=== PATIENT | female | born 1980 | race Caucasian/White ===

== ENCOUNTER 2016-07-17 10:03 | Emergency (ER) | payer MEDICAID ==
[~2016-07-17] VITALS: Ht 167.6 cm; Wt 72.1 kg
[2016-07-17 10:06] VITALS: BP 103/57
--- NOTE | 2016-07-17 10:21 | NUR ---
Patient ambulated to bed 3. RN evaluating patient at bedside.
--- NOTE | 2016-07-17 10:30 | NUR ---
36/F TO ED WITH C/O VAG BLEEDING STARTING LAST NIGHT. PT STATES SHE IS 11 WEEKS PREG. DENIES PAIN. 1 PAD SATURATED OVER NIGHT. LUNGS CLEAR BILAT. HR EVEN AND REGULAR. AAOX4. VSS. NO SIGNS OF DISTRESS.
--- NOTE | 2016-07-17 11:38 | NUR ---
REPatient appears to be resting comfortably in bed. Vital Signs within normal limits. Respirations even and unlabored.
--- NOTE | 2016-07-17 12:21 | NUR ---
Pelvic exam completed at bedside by Dr. Islas.
[2016-07-17 12:28] VITALS: BP 108/68
--- NOTE | 2016-07-17 12:28 | NUR ---
Patient discharged with v/s stable. Written and verbal after care instructions given and explained. Patient verbalized understanding. Ambulatory with steady gait. All questions addressed prior to discharge. Advised to follow up with PMD.
== END 2016-07-17 12:28 | disposition home or self-care (01) ==
LOC: MED 10:03
DX: O20.0 Threatened abortion (principal); Z3A.11 11 weeks gestation of pregnancy
CPT/HCPCS: 36415; 76801; 81001; 84702; 85025; 86900; 86901; 99285; Q0092